=== PATIENT | female | born 1990 | race Two or more races ===

== ENCOUNTER 2020-08-12 20:26 | Emergency (ER) | payer SELFPAY ==
[~2020-08-12] VITALS: Ht 160 cm; Wt 59.0 kg
[2020-08-12 20:29] VITALS: BP 104/68
--- NOTE | 2020-08-12 20:41 | NUR ---
ED Nurse Note: Walk-in patient with complaints of dog bite to buttocks. Patient is not up to date with vaccinations. Will continue to monitor.
[2020-08-12] MEDS ORDERED: Lidocaine HCl 2% Jelly 6ml Tube TOPIC ONE (21:00)
[2020-08-12] MEDS ORDERED: AUGMENTIN 875-1 EAC1 ORAL (21:04)
[2020-08-12] MEDS ORDERED: BACITRACIN ZIN1 EACH TOPIC (21:04)
[2020-08-12] MEDS ORDERED: IBUPROFEN600 M1 ORAL (21:04)
--- NOTE | 2020-08-12 21:09 | Emergency Room Report ---
History of Present Illness General Chief Complaint: Animal Bite Source: Patient Present Illness HPI Patient is a 30-year-old female presents for increased left-sided buttock pain. Patient reports having been bitten by a dog just prior to arrival. Had no recent tetanus vaccine. 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: No Patient History Past Medical History: see triage record Last Menstrual Period: current Reviewed Nursing Documentation: PMH: Agreed; PSxH: Agreed Nursing Documentation-PMH Past Medical History: No Stated History Physical Exam Vital Signs Date Time Temp Pulse Resp B/P (MAP) Pulse Ox O2 Delivery O2 Flow Rate FiO2 08/12/20 20:29 98.8 103 22 104/68 (80) 98 Room Air Medical Decision Making Diagnostic Impression: Primary Impression: Bite by animal Additional Impression: Abrasion of buttock, left Last Vital Signs Date Time Temp Pulse Resp B/P (MAP) Pulse Ox O2 Delivery O2 Flow Rate FiO2 08/12/20 20:29 98.8 103 22 104/68 (80) 98 Room Air Disposition: HOME, SELF-CARE Condition: Stable Scripts Ibuprofen* (MOTRIN*) 600 Mg Tablet 600 MG ORAL Q8H PRN for FOR PAIN, #30 TAB 0 Refills Prov: Mauricio Lackey MD 08/12/20 Amoxicillin/Potassium Clav 875-125* (AUGMENTIN 875-125 TABLET*) 1 Each Tablet 1 TAB ORAL TWICE A DAY, #14 TAB Prov: Mauricio Lackey MD 08/12/20 Bacitracin Zinc* (BACITRACIN ZINC*) 1 Each Packet 1 APPLIC TOPIC THREE TIMES A DAY, #30 PACKET Prov: Mauricio Lackey MD 08/12/20 Referrals: NOT CHOSEN IPA/,REFERRING (PCP) Patient Instructions: Animal Bite Additional Instructions: Follow up with your doctor for wound recheck in 2-3 days. Return if worse. Mauricio Lackey MD Aug 12, 2020 21:08
[2020-08-12] MEDS ORDERED: Bacitracin Oint UD TOPIC ONE (21:15)
[2020-08-12] MEDS ORDERED: Augmentin 875mg Tab ORAL ONE (21:15)
[2020-08-12] MEDS ORDERED: Tetanus/Diptheria/Pertussis IM ONE (21:15)
[2020-08-12 21:25] VITALS: BP 104/68
--- NOTE | 2020-08-12 21:26 | NUR ---
ER DISCHARGE NOTE: Patient is cleared to be discharged per ERMD. Patient's wound cleaned with normal saline, bacitracin and lidocaine gell applied. Telfa pad and tape dressing applied to area. Patient tolerated wound care well. Patient verbalized understanding of discharge instructions. ID band removed. Patient is ambulatory with steady gait, A&Ox4, and has no complaints at this time. Patient departed to home via personal vehicle.
== END 2020-08-12 21:25 | disposition home or self-care (01) ==
LOC: EMR 20:41
DX: S31.825A Open bite of left buttock, initial encounter (principal); W54.0XXA Bitten by dog, initial encounter; Y92.9 Unspecified place or not applicable; S30.810A Abrasion of lower back and pelvis, initial encounter; Z23 Encounter for immunization; Z20.3 Contact with and (suspected) exposure to rabies
CPT/HCPCS: 90471; 90715; 99282